=== PATIENT | male | born 1970 | race Caucasian/White ===

== ENCOUNTER 2019-05-17 00:10 | Inpatient (IN) | payer OTHER ==
[2019-05-17 03:16] VITALS: BMI 27.5
--- NOTE | 2019-05-17 04:48 | PN ---
BHS COWS - Scale Resting Pulse: 1= [place] 81-100 Sweatin=Flushed/Facial Moisture Restless Observation: 0= Sits Still Pupil Size: 0= Normal to Room Light Bone or Joint Aches: 4=Acute Joint/Muscle Pain Runny Nose/ Eye Tearin= Runny Nose/Eyes GI Upset > 30mins: 1= Stomach Cramp Tremor Observation of Outstretched Hands: 4= Gross Tremor/Twitching Yawning Observation: 1= 1-2x During Session Anxiety or Irritability: 2=Irritable/Anxious Goose Flesh Skin: 0=Smooth Skin COWS Score: 17 BHS Progress Note (SOAP) Subjective: Heroin dependence in withdrawal Cocaine dependence Nicotine dependence Cannabis dependence Objective: 05/17/19 04:48 Sweating, Shakiness Anxiety Tremors Vital Signs Temperature 96.5 F L 05/17/19 03:14 Pulse Rate 88 05/17/19 03:14 Respiratory Rate 18 05/17/19 03:14 Blood Pressure 124/79 05/17/19 03:14 O2 Sat by Pulse Oximetry (%) Assessment: 05/17/19 04:49 Heroin withdrawal symptoms Plan: Admit to detox Methadone regimen See admission orders H and 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
[2019-05-17] MEDS ORDERED: IBUPROFEN 400 MG TABLET (FP) PO PRN (04:56)
[2019-05-17] MEDS ORDERED: ACETAMINOPHEN 325 MG TABLET (FP) PO PRN ×2 (04:56)
[2019-05-17] MEDS ORDERED: MELATONIN 5 MG TABLETS PO PRN (04:56)
[2019-05-17] MEDS ORDERED: MAG HYDROX/AL HYDROX/SIMETH 30 ML UNIT-DOSE CUP PO PRN (04:56)
[2019-05-17] MEDS ORDERED: NICOTINE POLACRILEX 2 MG GUM BUC PRN (04:56)
[2019-05-17] MEDS ORDERED: BISMUTH SUBSALICYLATE 524 MG/30 ML UD PO PRN (04:56)
[2019-05-17] MEDS ORDERED: MAGNESIUM CITRATE 300 ML BOTTLE PO PRN (04:56)
[2019-05-17] MEDS ORDERED: MENTHOL/PHENOL 1 EACH UD MM PRN (04:56)
[2019-05-17] MEDS ORDERED: cloNIDine HCL 0.1 MG TABLET PO PRN (04:56)
[2019-05-17] MEDS ORDERED: METHADONE HCL 10 MG TABLET (FOR DETOX USE ONLY) PO ONE (04:56)
--- NOTE | 2019-05-17 10:13 | CONSULT ---
[facility] Psychiatric Consult - Data Date of interview: 05/17/19 Admission source: Self-referred Identifying data: Mr Langley is a 49 years old single male, unemployed receiving SSI, homeless seeking detox treatment for opioid cocaine and cannabis Substance Abuse History: Reports history of heroin, cocaine and marijuana use. Refer to addiction counselor's summary for further information Medical History: Significant for dyslidemia, hypertension, hypothyroidism, low back pain. Smokes 10 cigaretttes daily Psychiatric History: Reports being diagnosed with ADHD a a child and Biploar depression in 2007. Denies previous psychiatric hospitalization or suicidal attempt. Reports that he was seeing a psychiatrist in [place] and his last visit was in March 2019. He is currently prescribed Strattera 80 mg/day, Wellbutrin 150 mg/day, Atarax 50 mg/tid and Seroquel 200 mg/hs. Claims that he last took medications 2 days ago. At present, denies experiencing psychotic, manic or depressive symptoms, S/H ideations. However, reports feeling anxious and sleeping poorly Physical/Sexual Abuse/Trauma History: Denies history of emotional, physical or sexual abuse as well as DV relationship Additional Comment: Reports history of 3 previous misdemeanor arrests Mental Status Exam - Mental Status Exam Alert and Oriented to: Time, Place, Person Cognitive Function: Fair Patient Appearance: Disheveled Mood: Anxious Affect: Constricted Patient Behavior: Cooperative Speech Pattern: Clear Voice Loudness: Normal Thought Process: Intact, Goal Oriented Thought Disorder: Not Present Hallucinations: Denies Suicidal Ideation: Denies Homicidal Ideation: Denies Insight/Judgement: Poor Sleep: Poorly Appetite: Good Muscle strength/Tone: Normal Gait/Station: Normal Psychiatric Findings - Problem List ([place] 1, 2,3) (1) ADHD (attention deficit hyperactivity disorder) Current Visit: Yes Status: Chronic (2) Bipolar II disorder Current Visit: Yes Status: Chronic (3) Substance-induced anxiety disorder Current Visit: Yes Status: Acute (4) Substance-induced sleep disorder Current Visit: Yes Status: Acute (5) Uncomplicated opioid dependence Current Visit: Yes Status: Acute (6) Cocaine dependence Current Visit: Yes Status: Acute (7) Cannabis dependence Current Visit: Yes Status: Acute (8) Nicotine dependence Current Visit: Yes Status: Chronic (9) Dyslipidemia Current Visit: Yes Status: Chronic (10) Hypothyroidism Current Visit: Yes Status: Chronic - Initial Treatment Plan Initial Treatment Plan: 1) Resume Strattera 80 mg po daily, Wellbutrin 150 mg po daily and Seroquel 200 mg po HS. 2) Continue inpatient detoxification
[2019-05-17] MEDS: PRENATAL VITAMINS W/ FOLIC ACID TABLET (FP) PO SCH (10:51)
[2019-05-17] MEDS: NICOTINE 14 MG/24 HOURS TOPICAL PATCH TD SCH (10:53)
[2019-05-17] MEDS: hydrOXYzine PAMOATE 25 MG CAPSULE (FP) PO PRN ×2 (10:55→19:19)
[2019-05-17] MEDS: ATOMOXETINE HCL 40 MG CAPSULE PO SCH (11:29)
[2019-05-17] MEDS: buPROPion HCL 75 MG TABLET PO SCH (11:31)
[2019-05-17] MEDS ORDERED: FLU VACCINE QUAD 60 MCG/0.5 ML (MDV 19-20) IM ONE (12:00)
--- NOTE | 2019-05-17 13:19 | HP ---
COWS - Scale Resting Pulse: 0= [place] 80 or Below Sweatin=Flushed/Facial Moisture Restless Observation: 1= Difficult to Sit Still Pupil Size: 0= Normal to Room Light Bone or Joint Aches: 2= Severe Diffuse Aches Runny Nose/ Eye Tearin= Runny Nose/Eyes GI Upset > 30mins: 1= Stomach Cramp Tremor Observation: 2= Slight Tremor Visible Yawning Observation: 2= >3x During Session Anxiety or Irritability: 2=Irritable/Anxious Goose Flesh Skin: 3=Piloerection COWS Score: 17 CIWA Score - Admission Criteria OASAS Guidelines: Admission for Medically Managed Detox: Requires at least one of the followin. CIWA greater than 12 2. Seizures within the past 24 hours 3. Delirium tremens within the past 24 hours 4. Hallucinations within the past 24 hours 5. Acute intervention needed for co occurring medical disorder 6. Acute intervention needed for co occurring psychiatric disorder 7. Severe withdrawal that cannot be handled at a lower level of care (continued vomiting, continued diarrhea, abnormal vital signs) requiring intravenous medication and/or fluids 8. Admitting History and Physical - Admission Chief Complaint: I need detox History of Present Illness: Pt is a 49 yr old male with a history of opioid dependence seeking detox for treatment. History Source: Patient Limitations to Obtaining History: No Limitations - Past Medical History Gastrointestinal: Yes: GERD Psych: Yes: Anxiety, Bipolar Musculoskeletal: Yes: Chronic low back pain ENT: Yes: Allergic Rhinitis - Past Surgical History Past Surgical History: Yes: None - Smoking History Smoking history: Current every day smoker Have you smoked in the past 12 months: Yes Aproximately how many cigarettes per day: 10 - Alcohol/Substance Use History of Substance Use: reports: Cocaine, Heroin Date of Last Use: 05/16/19 - Social History Usual Living Arrangement: Yes: With Significant Other Do you think of yourself as: Straight/Heterosexual History of Recent Travel: No Admission ROS [facility] Chief Complaint: I am here for detox. Allergies/Adverse Reactions: Allergies Allergy/AdvReac Type Severity Reaction Status Date / Time No Known Allergies Allergy Unverified 05/17/19 09:33 History of Present Illness: Pt is a 50yrold male with a history of alcohol dependence seeking detox. Exam Limitations: No Limitations - Ebola screening Have you traveled outside of the country in the last 21 days: No (N) Have you had contact with anyone from an Ebola affected area: No Have you been sick,other than usual withdrawal symptoms: No Do you have a fever: No - Review of Systems Constitutional: Diaphoresis, Loss of Appetite, Night Sweats, Unintentional Wgt. Loss EENT: reports: Tearing, Nose Congestion Cardiac: reports: No Symptoms Reported GI: reports: Poor Appetite, Poor Fluid Intake : reports: No Symptoms Reported Musculoskeletal: reports: No Symptoms Reported Integumentary: reports: Flushing, Sweating Neuro: reports: Headache, Tingling, Tremors Endocrine: reports: Excessive Sweating, Flushing, Intolerance to Cold, Intolerance to Heat Hematology: reports: No Symptoms Reported Psychiatric: reports: Judgement Intact, Mood/Affect Appropiate, Orientated x3, Agitated, Anxious Other Systems: Reviewed and Negative Patient History - Patient Medical History Hx Anemia: No Hx Asthma: No Hx Chronic Obstructive Pulmonary Disease (COPD): No Hx Cancer: No Hx Cardiac Disorders: No Hx Congestive Heart Failure: No Hx Hypertension: No Hx Hypercholesterolemia: No Hx Pacemaker: No HX Cerebrovascular Accident: No Hx Seizures: No Hx Dementia: No Hx Diabetes: No Hx Gastrointestinal Disorders: No Hx Liver Disease: No Hx Genitourinary Disorders: No Hx Sexually Transmitted Disorders: Yes ( syphilis treated) Hx Renal Disease (ESRD): No Hx Thyroid Disease: No Hx Human Immunodeficiency Virus (HIV): No Hx Hepatitis C: No Hx Depression: Yes Hx Suicide Attempt: No (pt denies) Hx Bipolar Disorder: Yes Hx Schizophrenia: No - Patient Surgical History Past Surgical History: No Hx Neurologic Surgery: No Hx Cataract Extraction: No Hx Cardiac Surgery: No Hx Lung Surgery: No Hx Breast Surgery: No Hx Breast Biopsy: No Hx Abdominal Surgery: No Hx Appendectomy: No Hx Cholecystectomy: No Hx Genitourinary Surgery: No Hx Section: No Hx Orthopedic Surgery: No Anesthesia Reaction: No - PPD History Previous Implant?: Yes Documented Results: Negative w/o proof Implanted On Prior [facility] Admission?: No Date: 05/19/19 PPD to be Administered?: No - Reproductive History Patient is a Female of Child Bearing Age (11 -55 yrs old): No - Smoking Cessation Smoking history: Current every day smoker Have you smoked in the past 12 months: Yes Aproximately how many cigarettes per day: 10 Hx Chewing Tobacco Use: No Initiated information on smoking cessation: Yes 'Breaking Loose' booklet given: 05/17/19 - Substance & Tx. History Hx Alcohol Use: No Hx Substance Use: Yes Substance Use Type: Heroin Hx Substance Use Treatment: No - Substances abused Heroin Substance route: Inhalation Frequency: Daily Amount used: 1 bundle Age of first use: 19 Date of last use: 05/16/19 Admission Physical Exam BHS - Vital Signs Vital Signs: Vital Signs - 24 hr 05/17/19 05/17/19 05/17/19 03:14 06:03 09:15 Temperature 96.5 F L 97.7 F 98.4 F Pulse Rate 88 80 86 Respiratory 18 18 18 Rate Blood Pressure 124/79 134/90 112/61 - Physical General Appearance: Yes: Appropriately Dressed, Moderate Distress, Tremorous, Irritable, Sweating, Anxious HEENTM: Yes: Normal Voice, Nasal Congestion, Rhinorrhea Respiratory: Yes: Lungs Clear, Normal Breath Sounds, No Respiratory Distress Neck: Yes: No masses,lesions,Nodules Breast: Yes: Within Normal Limits Cardiology: Yes: Regular Rhythm, Regular Rate, S1, S2 Abdominal: Yes: Normal Bowel Sounds, Non Tender, Flat, Soft Genitourinary: Yes: Within Normal Limits Back: Yes: Normal Inspection Musculoskeletal: Yes: Back pain Extremities: Yes: Normal Capillary Refill, Tremors Neurological: Yes: Fully Oriented, Alert, Normal Response Integumentary: Yes: Normal Color Lymphatic: Yes: Within Normal Limits - Diagnostic (1) Cannabis dependence Current Visit: Yes Status: Chronic (2) Cocaine dependence Current Visit: Yes Status: Chronic Qualifiers: Substance use status: uncomplicated Qualified Code(s): F14.20 - Cocaine dependence, uncomplicated (3) Substance-induced anxiety disorder Current Visit: Yes Status: Acute (4) Substance-induced sleep disorder Current Visit: Yes Status: Acute (5) Uncomplicated opioid dependence Current Visit: Yes Status: Chronic (6) ADHD (attention deficit hyperactivity disorder) Current Visit: Yes Status: Chronic (7) Bipolar II disorder Current Visit: Yes Status: Chronic (8) Hypothyroidism Current Visit: Yes Status: Chronic Qualifiers: Hypothyroidism type: acquired Qualified Code(s): E03.9 - Hypothyroidism, unspecified (9) Nicotine dependence Current Visit: Yes Status: Chronic Qualifiers: Nicotine product type: cigarettes Substance use status: uncomplicated Qualified Code(s): F17.210 - Nicotine dependence, cigarettes, uncomplicated Cleared for Admission BHS - Detox or Rehab [facility] Level of Care: Medically Managed Detox Regimen/Protocol: Methadone Breathalyzer - Breathalyzer Breathalyzer: 0 Urine Drug Screen - Test Device Lot number: [id number] Expiration date: 01/07/21 - Control Is test valid?: Yes - Results Drug screen NEGATIVE: Yes Urine drug screen results: THC-Marijuana, JENNIFER-Cocaine, FEN-Fentanyl, MTD- Methadone Inpatient Rehab Admission - Rehab Decision to Admit Inpatient rehab admission?: No
[2019-05-17 16:32] LABS: HEMATOCRIT 40.9 % (35.4-49); MCH 28.2 pg (25.7-33.7); MCHC 34.1 g/dl (32.0-35.9); MEAN CELL VOLUME 82.6 fl (80-96); MEAN PLT VOLUME 8.3 fl (7.5-11.1); PLATELET COUNT 304 K/MM3 (134-434); RBC 4.95 M/mm3 (4.00-5.60); RDW 13.4 % (11.9-15.9); WHITE BLOOD COUNT 9.8 K/mm3 (4.0-10.0)
[2019-05-17 16:44] LABS: ALBUMIN 3.5 g/dl (3.4-5.0); BILIRUBIN,TOTAL 0.4 mg/dL (0.2-1); BLOOD UREA NITROGEN 15.1 mg/dL (7-18); CALCIUM 8.9 mg/dL (8.5-10.1); POTASSIUM 4.2 mmol/L (3.5-5.1); TOT PROT 6.4 g/dl (6.4-8.2)
--- NOTE | 2019-05-17 18:58 | HOSP ---
Subjective - Review of Symptoms Subjective: Called that patient has crusting with some blood on the bottom of his R foot. Patient reports that he was walking for several days outside without socks. On exam, patient's foot had several crusted lesions on plantar surface with dried blood noted. Not actively bleeding. Will order Eucerin lotion to be applied to the foot daily with wrap. Physical Examination Vital Signs: Vital Signs Temperature 97.2 F L 05/17/19 16:58 Pulse Rate 84 05/17/19 16:58 Respiratory Rate 18 05/17/19 16:58 Blood Pressure 138/75 05/17/19 16:58 O2 Sat by Pulse Oximetry (%) Labs: CBC, BMP 05/17/19 13:15 05/17/19 13:15 Visit type - Emergency Visit Emergency Visit: No - New Patient This patient is new to me today: No - Critical Care Critical Care patient: No
[2019-05-17] MEDS: METHOCARBAMOL 500 MG TABLET PO PRN (19:19)
[2019-05-17] MEDS: QUEtiapine FUMARATE 200 MG TABLET PO SCH (22:23)
[2019-05-17] MEDS: ATORVASTATIN CA 10 MG TABLET (FP) PO SCH (22:23)
[2019-05-17] MEDS: THIAMINE HCL 100 MG TABLET (FP) PO SCH (22:23)
[2019-05-18] MEDS: LEVOTHYROXINE NA 25 MCG TABLET (FP) PO SCH (08:01)
[2019-05-18] MEDS ORDERED: METHADONE HCL 5 MG TABLET (FOR DETOX USE ONLY) ONE (09:37)
[2019-05-18] MEDS ORDERED: METHADONE HCL 10 MG TABLET (FOR DETOX USE ONLY) ONE (09:37)
[2019-05-18] MEDS ORDERED: METHADONE (DETOX) 20 MG, METHADONE (DETOX) 5 MG PO ONE (10:00)
[2019-05-18] MEDS: PRENATAL VITAMINS W/ FOLIC ACID TABLET (FP) PO SCH (10:10)
[2019-05-18] MEDS: ATOMOXETINE HCL 40 MG CAPSULE PO SCH (10:10)
[2019-05-18] MEDS: MINERAL OIL/PETROLAT/WATER TOPICAL CREAM 113 GM JAR TP SCH (10:11)
[2019-05-18] MEDS: NICOTINE 14 MG/24 HOURS TOPICAL PATCH TD SCH (10:11)
[2019-05-18] MEDS: hydrOXYzine PAMOATE 25 MG CAPSULE (FP) PO PRN ×2 (10:14→18:15)
--- NOTE | 2019-05-18 10:57 | EKG ---
Test Reason : Blood Pressure : / mmHG Vent. Rate : 080 BPM Atrial Rate : 080 BPM P-R Int : 144 ms QRS Dur : 102 ms QT Int : 402 ms P-R-T Axes : 063 072 044 degrees QTc Int : 463 ms NORMAL SINUS RHYTHM NORMAL ECG NO PREVIOUS ECGS AVAILABLE Confirmed by AMINTA SANCHEZ, JAMES ([id number]) on 05/18/2019 10:57:23 AM Referred By: Errol Mercado Confirmed By:JAMES LEMOS MD
[2019-05-18] MEDS: buPROPion HCL 75 MG TABLET PO SCH (12:37)
--- NOTE | 2019-05-18 13:03 | PN ---
BHS COWS - Scale Resting Pulse: 1= [place] 81-100 Sweatin=Flushed/Facial Moisture Restless Observation: 1= Difficult to Sit Still Pupil Size: 0= Normal to Room Light Bone or Joint Aches: 2= Severe Diffuse Aches Runny Nose/ Eye Tearin= Nasal Congestion GI Upset > 30mins: 0= None Tremor Observation of Outstretched Hands: 2= Slight Tremor Visible Yawning Observation: 0= None Anxiety or Irritability: 2=Irritable/Anxious Goose Flesh Skin: 0=Smooth Skin COWS Score: 11 BHS Progress Note (SOAP) Subjective: agitation sweats anxiety irritable interrupted sleep Objective: 05/18/19 12:56 Vital Signs Temperature 98.9 F 05/18/19 10:20 Pulse Rate 97 H 05/18/19 10:20 Respiratory Rate 18 05/18/19 10:20 Blood Pressure 107/58 L 05/18/19 10:20 O2 Sat by Pulse Oximetry (%) Laboratory Tests 05/17/19 05/17/19 05/17/19 13:15 13:15 13:15 WBC 9.8 RBC 4.95 Hgb 14.0 Hct 40.9 MCV 82.6 MCH 28.2 MCHC 34.1 RDW 13.4 Plt Count 304 MPV 8.3 Sodium 138 Potassium 4.2 Chloride 103 Carbon Dioxide 31 Anion Gap 4 L BUN 15.1 Creatinine 1.0 Est GFR (CKD-EPI)AfAm 103.42 Est GFR (CKD-EPI)NonAf 89.23 Random Glucose 134 H Calcium 8.9 Total Bilirubin 0.4 AST 20 ALT 36 Alkaline Phosphatase 93 Total Protein 6.4 Albumin 3.5 RPR Titer HIV 1&2 Antibody Screen Negative HIV P24 Antigen Negative 05/17/19 13:15 WBC RBC Hgb Hct MCV MCH MCHC RDW Plt Count MPV Sodium Potassium Chloride Carbon Dioxide Anion Gap BUN Creatinine Est GFR (CKD-EPI)AfAm Est GFR (CKD-EPI)NonAf Random Glucose Calcium Total Bilirubin AST ALT Alkaline Phosphatase Total Protein Albumin RPR Titer Nonreactive HIV 1&2 Antibody Screen HIV P24 Antigen labs noted aaox3 ambulating no acute distress Assessment: 05/18/19 13:03 withdrawal Plan: continue detox increase fluids
--- NOTE | 2019-05-18 13:37 | PN ---
[facility] Progress Note Note: pt was seen at [facility] on 05/13/19 for N/V. pt failed to tell admitting doctor here at [facility] that he need to continue taking cipro and flagly prescribed medication. this was confirmed pt brought his own medication and d/c papers were viewed and it confirmed the above. order for cipro and flagly will be placed.
[2019-05-18] MEDS ORDERED: CIPROFLOXACIN 500 MG TABLET (RESTRICTED TO ID) PO SCH (13:45)
[2019-05-18] MEDS: metroNIDAZOLE 250 MG TABLET PO SCH ×2 (15:11→22:10)
[2019-05-18] MEDS: CIPROFLOXACIN 500 MG TABLET (RESTRICTED TO ID) PO SCH ×2 (15:11→22:10)
[2019-05-18] MEDS: QUEtiapine FUMARATE 200 MG TABLET PO SCH (22:09)
[2019-05-18] MEDS: THIAMINE HCL 100 MG TABLET (FP) PO SCH (22:09)
[2019-05-18] MEDS: ATORVASTATIN CA 10 MG TABLET (FP) PO SCH (22:09)
[2019-05-18] MEDS: TOLNAFTATE 1% CREAM 15 GM TUBE TP SCH (22:53)
[2019-05-18] MEDS: BACITRACIN 0.9 GM PACKET TP SCH (22:53)
[2019-05-19] MEDS: metroNIDAZOLE 250 MG TABLET PO SCH ×3 (06:23→22:24)
[2019-05-19] MEDS: LEVOTHYROXINE NA 25 MCG TABLET (FP) PO SCH (06:24)
[2019-05-19] MEDS: hydrOXYzine PAMOATE 25 MG CAPSULE (FP) PO PRN ×3 (06:27→22:27)
[2019-05-19] MEDS: NICOTINE 14 MG/24 HOURS TOPICAL PATCH TD SCH (09:58)
[2019-05-19] MEDS: ATOMOXETINE HCL 40 MG CAPSULE PO SCH (09:58)
[2019-05-19] MEDS: buPROPion HCL 75 MG TABLET PO SCH (09:58)
[2019-05-19] MEDS: PRENATAL VITAMINS W/ FOLIC ACID TABLET (FP) PO SCH (09:58)
[2019-05-19] MEDS: CIPROFLOXACIN 500 MG TABLET (RESTRICTED TO ID) PO SCH ×2 (09:59→22:24)
[2019-05-19] MEDS ORDERED: METHADONE HCL 10 MG TABLET (FOR DETOX USE ONLY) PO ONE (10:00)
[2019-05-19] MEDS: BACITRACIN 0.9 GM PACKET TP SCH ×2 (10:36→22:24)
[2019-05-19] MEDS: TOLNAFTATE 1% CREAM 15 GM TUBE TP SCH ×2 (10:36→22:24)
[2019-05-19] MEDS: MINERAL OIL/PETROLAT/WATER TOPICAL CREAM 113 GM JAR TP SCH (10:36)
[2019-05-19] MEDS: MAGNESIUM HYDROX 2400MG/30ML ORAL SUSPENSION 30 ML CUP PO PRN (11:37)
--- NOTE | 2019-05-19 12:14 | PN ---
BHS COWS - Scale Resting Pulse: 1= [place] 81-100 Sweatin= Chills/Flushing Restless Observation: 1= Difficult to Sit Still Pupil Size: 0= Normal to Room Light Bone or Joint Aches: 2= Severe Diffuse Aches Runny Nose/ Eye Tearin= Nasal Congestion GI Upset > 30mins: 0= None Tremor Observation of Outstretched Hands: 1= Tremor [place], Not Seen Yawning Observation: 0= None Anxiety or Irritability: 2=Irritable/Anxious Goose Flesh Skin: 0=Smooth Skin COWS Score: 9 BHS Progress Note (SOAP) Subjective: agitation sweats anxiety Objective: 05/19/19 12:13 Vital Signs Temperature 97.5 F L 05/19/19 06:25 Pulse Rate 81 05/19/19 06:25 Respiratory Rate 18 05/19/19 06:25 Blood Pressure 134/63 05/19/19 06:25 O2 Sat by Pulse Oximetry (%) Laboratory Tests 05/17/19 05/17/19 05/17/19 13:15 13:15 13:15 WBC 9.8 RBC 4.95 Hgb 14.0 Hct 40.9 MCV 82.6 MCH 28.2 MCHC 34.1 RDW 13.4 Plt Count 304 MPV 8.3 Sodium 138 Potassium 4.2 Chloride 103 Carbon Dioxide 31 Anion Gap 4 L BUN 15.1 Creatinine 1.0 Est GFR (CKD-EPI)AfAm 103.42 Est GFR (CKD-EPI)NonAf 89.23 Random Glucose 134 H Calcium 8.9 Total Bilirubin 0.4 AST 20 ALT 36 Alkaline Phosphatase 93 Total Protein 6.4 Albumin 3.5 RPR Titer HIV 1&2 Antibody Screen Negative HIV P24 Antigen Negative 05/17/19 13:15 WBC RBC Hgb Hct MCV MCH MCHC RDW Plt Count MPV Sodium Potassium Chloride Carbon Dioxide Anion Gap BUN Creatinine Est GFR (CKD-EPI)AfAm Est GFR (CKD-EPI)NonAf Random Glucose Calcium Total Bilirubin AST ALT Alkaline Phosphatase Total Protein Albumin RPR Titer Nonreactive HIV 1&2 Antibody Screen HIV P24 Antigen labs noted aaox3 ambulating no acute distress Assessment: 05/19/19 12:13 withdrawals Plan: continue detox increase fluids
[2019-05-19] MEDS: METHOCARBAMOL 500 MG TABLET PO PRN ×2 (14:55→22:28)
[2019-05-19] MEDS: QUEtiapine FUMARATE 200 MG TABLET PO SCH (22:22)
[2019-05-19] MEDS: ATORVASTATIN CA 10 MG TABLET (FP) PO SCH (22:23)
[2019-05-19] MEDS: THIAMINE HCL 100 MG TABLET (FP) PO SCH (22:23)
[2019-05-20] MEDS: MINERAL OIL/PETROLAT/WATER TOPICAL CREAM 113 GM JAR TP SCH ×2 (01:12→10:28)
[2019-05-20] MEDS: metroNIDAZOLE 250 MG TABLET PO SCH ×3 (05:15→21:57)
[2019-05-20] MEDS: LEVOTHYROXINE NA 25 MCG TABLET (FP) PO SCH (07:57)
[2019-05-20] MEDS ORDERED: METHADONE HCL 10 MG TABLET (FOR DETOX USE ONLY) ONE (09:44)
[2019-05-20] MEDS ORDERED: METHADONE HCL 5 MG TABLET (FOR DETOX USE ONLY) ONE (09:45)
[2019-05-20] MEDS ORDERED: METHADONE (DETOX) 10 MG, METHADONE (DETOX) 5 MG PO ONE (10:00)
[2019-05-20] MEDS: PRENATAL VITAMINS W/ FOLIC ACID TABLET (FP) PO SCH (10:27)
[2019-05-20] MEDS: ATOMOXETINE HCL 40 MG CAPSULE PO SCH (10:27)
[2019-05-20] MEDS: buPROPion HCL 75 MG TABLET PO SCH (10:27)
[2019-05-20] MEDS: CIPROFLOXACIN 500 MG TABLET (RESTRICTED TO ID) PO SCH ×2 (10:28→21:57)
[2019-05-20] MEDS: TOLNAFTATE 1% CREAM 15 GM TUBE TP SCH ×2 (10:29→21:58)
[2019-05-20] MEDS: hydrOXYzine PAMOATE 25 MG CAPSULE (FP) PO PRN (10:33)
[2019-05-20] MEDS: METHOCARBAMOL 500 MG TABLET PO PRN ×2 (10:33→21:59)
[2019-05-20] MEDS: NICOTINE 21 MG/24 HOURS TOPICAL PATCH TD SCH (10:35)
[2019-05-20] MEDS: BACITRACIN 0.9 GM PACKET TP SCH ×2 (10:40→21:56)
--- NOTE | 2019-05-20 13:51 | PN ---
BHS COWS - Scale Resting Pulse: 1= [place] 81-100 Sweatin= Chills/Flushing Restless Observation: 1= Difficult to Sit Still Pupil Size: 1= Pupils >than Normal Bone or Joint Aches: 1= Mild Discomfort Runny Nose/ Eye Tearin= Nasal Congestion GI Upset > 30mins: 1= Stomach Cramp Tremor Observation of Outstretched Hands: 1= Tremor [place], Not Seen Yawning Observation: 0= None Anxiety or Irritability: 2=Irritable/Anxious Goose Flesh Skin: 0=Smooth Skin COWS Score: 10 BHS Progress Note (SOAP) Subjective: interrupted sleep, sweats, lbp, constiaption , doesnt like food . Objective: 05/20/19 13:47 Vital Signs Temperature 98.0 F 05/20/19 13:10 Pulse Rate 100 H 05/20/19 13:10 Respiratory Rate 18 05/20/19 13:10 Blood Pressure 146/75 05/20/19 13:10 O2 Sat by Pulse Oximetry (%) Laboratory Tests 05/17/19 05/17/19 05/17/19 13:15 13:15 13:15 WBC 9.8 RBC 4.95 Hgb 14.0 Hct 40.9 MCV 82.6 MCH 28.2 MCHC 34.1 RDW 13.4 Plt Count 304 MPV 8.3 Sodium 138 Potassium 4.2 Chloride 103 Carbon Dioxide 31 Anion Gap 4 L BUN 15.1 Creatinine 1.0 Est GFR (CKD-EPI)AfAm 103.42 Est GFR (CKD-EPI)NonAf 89.23 Random Glucose 134 H Calcium 8.9 Total Bilirubin 0.4 AST 20 ALT 36 Alkaline Phosphatase 93 Total Protein 6.4 Albumin 3.5 RPR Titer HIV 1&2 Antibody Screen Negative HIV P24 Antigen Negative 05/17/19 13:15 WBC RBC Hgb Hct MCV MCH MCHC RDW Plt Count MPV Sodium Potassium Chloride Carbon Dioxide Anion Gap BUN Creatinine Est GFR (CKD-EPI)AfAm Est GFR (CKD-EPI)NonAf Random Glucose Calcium Total Bilirubin AST ALT Alkaline Phosphatase Total Protein Albumin RPR Titer Nonreactive HIV 1&2 Antibody Screen HIV P24 Antigen pt aox3 irriatable about food. ambulating well Assessment: 05/20/19 13:49 withdrawal sx's elevated glucose constipation 05/20/19 13:51 05/20/19 13:59 Plan: cont. detox increase fluids citrate of magnesia daily BGM
[2019-05-20] MEDS ORDERED: MAGNESIUM CITRATE 300 ML BOTTLE PO ONE (14:02)
[2019-05-20] MEDS: MAGNESIUM HYDROX 2400MG/30ML ORAL SUSPENSION 30 ML CUP PO PRN (19:50)
[2019-05-20] MEDS: THIAMINE HCL 100 MG TABLET (FP) PO SCH (21:57)
[2019-05-20] MEDS: ATORVASTATIN CA 10 MG TABLET (FP) PO SCH (21:57)
[2019-05-20] MEDS: QUEtiapine FUMARATE 200 MG TABLET PO SCH (21:57)
[2019-05-21] MEDS: metroNIDAZOLE 250 MG TABLET PO SCH (06:04)
[2019-05-21] MEDS: LEVOTHYROXINE NA 25 MCG TABLET (FP) PO SCH (06:04)
[2019-05-21] MEDS: MAGNESIUM HYDROX 2400MG/30ML ORAL SUSPENSION 30 ML CUP PO PRN (06:05)
[2019-05-21 09:13] VITALS: BP 131/66; PULSE 87; TEMP 97.9
[2019-05-21] MEDS ORDERED: METHADONE HCL 10 MG TABLET (FOR DETOX USE ONLY) PO ONE (10:00)
[2019-05-21] MEDS: CIPROFLOXACIN 500 MG TABLET (RESTRICTED TO ID) PO SCH (10:18)
[2019-05-21] MEDS: ATOMOXETINE HCL 40 MG CAPSULE PO SCH (10:18)
[2019-05-21] MEDS: buPROPion HCL 75 MG TABLET PO SCH (10:18)
[2019-05-21] MEDS: PRENATAL VITAMINS W/ FOLIC ACID TABLET (FP) PO SCH (10:18)
[2019-05-21] MEDS: NICOTINE 21 MG/24 HOURS TOPICAL PATCH TD SCH (10:19)
[2019-05-21] MEDS: TOLNAFTATE 1% CREAM 15 GM TUBE TP SCH (10:19)
[2019-05-21] MEDS: MINERAL OIL/PETROLAT/WATER TOPICAL CREAM 113 GM JAR TP SCH (10:19)
[2019-05-21] MEDS: BACITRACIN 0.9 GM PACKET TP SCH (10:19)
--- NOTE | 2019-05-21 12:43 | PN ---
BHS Progress Note (SOAP) Subjective: feeling much better i am ready to go home Objective: 05/21/19 12:43 Vital Signs Temperature 97.9 F 05/21/19 09:12 Pulse Rate 87 05/21/19 09:12 Respiratory Rate 18 05/21/19 09:12 Blood Pressure 131/66 05/21/19 09:12 O2 Sat by Pulse Oximetry (%) aaox3 ambulating no acute distress Assessment: 05/21/19 12:43 comfortable no s/s of withdrawals Plan: d/c today
--- NOTE | 2019-05-21 12:46 | DS ---
[facility] Detox Discharge Summary Admission Date: 05/17/19 Discharge Date: 05/21/19 - History Present History: Cannabis Dependence, Cocaine Dependence, Opioid Dependence, Sedative Dependence - Physical Exam Results Vital Signs: Vital Signs Temperature 97.9 F 05/21/19 09:12 Pulse Rate 87 05/21/19 09:12 Respiratory Rate 18 05/21/19 09:12 Blood Pressure 131/66 05/21/19 09:12 O2 Sat by Pulse Oximetry (%) Pertinent Admission Physical Exam Findings: pt arrived in withdrawals Laboratory Tests 05/17/19 05/17/19 05/17/19 13:15 13:15 13:15 WBC 9.8 RBC 4.95 Hgb 14.0 Hct 40.9 MCV 82.6 MCH 28.2 MCHC 34.1 RDW 13.4 Plt Count 304 MPV 8.3 Sodium 138 Potassium 4.2 Chloride 103 Carbon Dioxide 31 Anion Gap 4 L BUN 15.1 Creatinine 1.0 Est GFR (CKD-EPI)AfAm 103.42 Est GFR (CKD-EPI)NonAf 89.23 Random Glucose 134 H Calcium 8.9 Total Bilirubin 0.4 AST 20 ALT 36 Alkaline Phosphatase 93 Total Protein 6.4 Albumin 3.5 RPR Titer HIV 1&2 Antibody Screen Negative HIV P24 Antigen Negative 05/17/19 13:15 WBC RBC Hgb Hct MCV MCH MCHC RDW Plt Count MPV Sodium Potassium Chloride Carbon Dioxide Anion Gap BUN Creatinine Est GFR (CKD-EPI)AfAm Est GFR (CKD-EPI)NonAf Random Glucose Calcium Total Bilirubin AST ALT Alkaline Phosphatase Total Protein Albumin RPR Titer Nonreactive HIV 1&2 Antibody Screen HIV P24 Antigen today pt is aaox3 ambulating no acute distress - Treatment Hospital Course: Detox Protocol Followed, Detoxed Safely, Responded well, Discharged Condition Good, Rehab Referral Accepted Patient has Accepted a Rehab Referral to: declined rehab; referral provided - Medication Discharge Medications: Ambulatory Orders Atomoxetine HCl [Strattera -] 80 mg PO DAILY 05/17/19 Atorvastatin Calcium [Lipitor] 10 mg PO HS 05/17/19 Bupropion HCl [Wellbutrin -] 150 mg PO DAILY 05/17/19 Clonidine HCl [Catapres] 0.1 mg PO BID PRN 05/17/19 Hydroxyzine HCl 50 mg PO TID PRN 05/17/19 Levothyroxine [Synthroid -] 25 mcg PO DAILY 05/17/19 Quetiapine Fumarate [Seroquel -] 200 mg PO HS 05/17/19 - Diagnosis (1) Cannabis dependence Current Visit: Yes Status: Chronic (2) Cocaine dependence Current Visit: Yes Status: Chronic Qualifiers: Substance use status: uncomplicated Qualified Code(s): F14.20 - Cocaine dependence, uncomplicated (3) Substance-induced anxiety disorder Current Visit: Yes Status: Acute (4) Substance-induced sleep disorder Current Visit: Yes Status: Acute (5) Uncomplicated opioid dependence Current Visit: Yes Status: Chronic (6) ADHD (attention deficit hyperactivity disorder) Current Visit: Yes Status: Chronic (7) Bipolar II disorder Current Visit: Yes Status: Chronic (8) Hypothyroidism Current Visit: Yes Status: Chronic Qualifiers: Hypothyroidism type: acquired Qualified Code(s): E03.9 - Hypothyroidism, unspecified (9) Nicotine dependence Current Visit: Yes Status: Chronic Qualifiers: Nicotine product type: cigarettes Substance use status: uncomplicated Qualified Code(s): F17.210 - Nicotine dependence, cigarettes, uncomplicated - AMA Did Patient Leave Against Medical Advice: No
[2019-05-22] MEDS ORDERED: METHADONE HCL 5 MG TABLET (FOR DETOX USE ONLY) PO ONE (06:00)
== END 2019-05-21 13:09 | disposition home or self-care (01) | DRG 897 ==
LOC: YASAS 00:10 → Y6N 05:09
PROVIDERS: ADMIT Allergy & Immunology; ATTEND Allergy & Immunology
PROC: HZ2ZZZZ Detoxification Services for Substance Abuse Treatment (ICD-10-PCS; principal; 2019-05-17)
DX: F11.23 Opioid dependence with withdrawal (principal); F14.20 Cocaine dependence, uncomplicated; F19.280 Other psychoactive substance dependence with psychoactive substance-induced anxiety disorder; F19.282 Other psychoactive substance dependence with psychoactive substance-induced sleep disorder; F31.81 Bipolar II disorder; F13.220 Sedative, hypnotic or anxiolytic dependence with intoxication, uncomplicated; F12.20 Cannabis dependence, uncomplicated; F17.210 Nicotine dependence, cigarettes, uncomplicated; F41.9 Anxiety disorder, unspecified; F90.9 Attention-deficit hyperactivity disorder, unspecified type; E78.5 Hyperlipidemia, unspecified; E03.9 Hypothyroidism, unspecified; R73.9 Hyperglycemia, unspecified; K59.00 Constipation, unspecified; L98.8 Other specified disorders of the skin and subcutaneous tissue; J30.9 Allergic rhinitis, unspecified
CPT/HCPCS: 36415; 80053; 85027; 86593; 87389; 93005; 93010; G0008; J0735; Q2036

== ENCOUNTER 2021-08-01 14:13 | Inpatient (IN) | payer OTHER ==
[2021-08-01] MEDS ORDERED: METHOCARBAMOL 500 MG TABLET PO PRN (17:48)
[2021-08-01] MEDS ORDERED: BISMUTH SUBSALICYLATE 524 MG/30 ML PO PRN (17:48)
[2021-08-01] MEDS ORDERED: ONDANSETRON *ODT* 4 MG TABLET SL PRN (17:48)
[2021-08-01] MEDS ORDERED: MENTHOL/PHENOL 1 EACH UD MM PRN (17:48)
[2021-08-01] MEDS ORDERED: MAG HYDROX/AL HYDROX/SIMETH 30 ML UNIT-DOSE CUP PO PRN (17:48)
[2021-08-01] MEDS ORDERED: MAGNESIUM HYDROX 2400MG/30ML ORAL SUSPENSION 30 ML CUP PO PRN (17:48)
[2021-08-01] MEDS ORDERED: diazePAM 5 MG TABLET PO PRN (17:48)
[2021-08-01] MEDS ORDERED: MAGNESIUM CITRATE 300 ML BOTTLE PO PRN (17:48)
[2021-08-01] MEDS ORDERED: ACETAMINOPHEN 325 MG TABLET (FP) PO PRN ×2 (17:48)
[2021-08-01] MEDS ORDERED: IBUPROFEN 400 MG TABLET (FP) PO PRN (17:48)
[2021-08-01] MEDS ORDERED: NICOTINE 10 MG CARTRIDGE (INHALER) IH PRN (17:48)
[2021-08-01] MEDS ORDERED: cloNIDine HCL 0.1 MG TABLET PO PRN (17:55)
[2021-08-01] MEDS ORDERED: MELATONIN 5 MG TABLETS PO SCH (22:00)
[2021-08-01] MEDS ORDERED: FAMOTIDINE 20 MG TABLET PO SCH (22:00)
[2021-08-01] MEDS ORDERED: PRAZOSIN HCL 2 MG CAPSULE PO SCH (22:00)
[2021-08-01] MEDS: THIAMINE HCL 100 MG TABLET (FP) PO SCH (22:24)
[2021-08-01] MEDS: ATORVASTATIN CA 10 MG TABLET (FP) PO SCH (22:24)
[2021-08-01] MEDS: hydrOXYzine PAMOATE 25 MG CAPSULE (FP) PO SCH (22:24)
[2021-08-01] MEDS: diazePAM 5 MG TABLET PO SCH (22:25)
[2021-08-01] MEDS ORDERED: PRAZOSIN HCL 1 MG CAPSULE PO SCH (23:18)
[2021-08-01] MEDS: PRAZOSIN HCL 1 MG CAPSULE PO SCH (23:39)
[2021-08-02] MEDS: diazePAM 5 MG TABLET PO SCH ×3 (06:14→17:20)
[2021-08-02] MEDS: hydrOXYzine PAMOATE 25 MG CAPSULE (FP) PO SCH ×4 (06:14→17:19)
[2021-08-02] MEDS: LEVOTHYROXINE NA 25 MCG TABLET (FP) PO SCH (06:31)
[2021-08-02] MEDS ORDERED: PATIENT'S OWN MEDICATION (NON-FORMULARY) (Hydroxyzine Hcl [Hydroxyzine Hcl] 50 MG Tablet) PO PRN (09:37)
[2021-08-02] MEDS ORDERED: ARIPiprazole 15 MG TABLET PO SCH (10:00)
[2021-08-02] MEDS ORDERED: PANTOPRAZOLE 40 MG TABLET PO SCH (10:00)
[2021-08-02] MEDS ORDERED: PRENATAL VITAMINS W/ FOLIC ACID TABLET (FP) PO SCH (10:00)
[2021-08-02] MEDS ORDERED: ATOMOXETINE HCL 40 MG CAPSULE PO SCH (10:00)
[2021-08-02] MEDS: BUPRENORPHINE/NALOXONE 8 MG/2 MG FILM PACKET SL SCH ×2 (10:19→17:19)
[2021-08-02 12:24] LABS: HEMATOCRIT 44.7 % (35.4-49); HEMOGLOBIN 15.1 GM/dL (11.7-16.9); MCH 28.3 pg (25.7-33.7); MCHC 33.7 g/dl (32.0-35.9); MEAN PLT VOLUME 8.2 fl (7.5-11.1); PLATELET COUNT 317 10^3/uL (134-434); RBC 5.33 M/mm3 (4.00-5.60); RDW 13.4 % (11.9-15.9); WHITE BLOOD COUNT 12.2 K/mm3 (4.0-10.0)
[2021-08-02 12:44] LABS: ALBUMIN 3.6 g/dl (3.4-5.0); BLOOD UREA NITROGEN 13.9 mg/dL (7-18); CALCIUM 9.2 mg/dL (8.5-10.1)
[2021-08-02 12:47] LABS: CREATININE 0.8 mg/dL (0.55-1.3); TOT PROT 7.1 g/dl (6.4-8.2)
[2021-08-02 12:49] LABS: BILIRUBIN,TOTAL 0.6 mg/dL (0.2-1)
[2021-08-02] MEDS: busPIRone HCL 10 MG TABLET (FP) PO SCH ×2 (16:55→22:19)
[2021-08-02] MEDS ORDERED: chlorproMAZINE HCL 25 MG TABLET PO SCH (22:00)
[2021-08-02] MEDS ORDERED: MIRTAZAPINE 15 MG TABLET (FP) PO SCH (22:00)
[2021-08-02] MEDS: ATORVASTATIN CA 10 MG TABLET (FP) PO SCH (22:19)
[2021-08-02] MEDS: THIAMINE HCL 100 MG TABLET (FP) PO SCH (22:19)
[2021-08-03] MEDS: PRAZOSIN HCL 1 MG CAPSULE PO SCH (02:02)
[2021-08-03] MEDS: diazePAM 5 MG TABLET PO SCH (02:03)
[2021-08-03] MEDS: hydrOXYzine PAMOATE 25 MG CAPSULE (FP) PO SCH ×2 (02:06→05:55)
[2021-08-03] MEDS ORDERED: diazePAM 5 MG TABLET PO SCH (06:00)
[2021-08-03 06:48] VITALS: BP 101/53; PULSE 71; TEMP 97.3
[2021-08-03] MEDS: busPIRone HCL 10 MG TABLET (FP) PO SCH (07:42)
[2021-08-03] MEDS: LEVOTHYROXINE NA 25 MCG TABLET (FP) PO SCH (08:10)
[2021-08-04] MEDS ORDERED: diazePAM 5 MG TABLET PO SCH (06:00)
[2021-08-05] MEDS ORDERED: diazePAM 5 MG TABLET PO ONE (06:00)
== END 2021-08-03 09:45 | disposition left against medical advice (07) | DRG 894 ==
LOC: YASAS 14:13 → Y6N 21:16
PROVIDERS: ADMIT Allergy & Immunology; ATTEND Allergy & Immunology
PROC: HZ2ZZZZ Detoxification Services for Substance Abuse Treatment (ICD-10-PCS; principal; 2021-08-01)
DX: F10.230 Alcohol dependence with withdrawal, uncomplicated (principal); F11.20 Opioid dependence, uncomplicated; F14.20 Cocaine dependence, uncomplicated; F19.282 Other psychoactive substance dependence with psychoactive substance-induced sleep disorder; F19.280 Other psychoactive substance dependence with psychoactive substance-induced anxiety disorder; F13.230 Sedative, hypnotic or anxiolytic dependence with withdrawal, uncomplicated; F12.20 Cannabis dependence, uncomplicated; F17.210 Nicotine dependence, cigarettes, uncomplicated; F90.9 Attention-deficit hyperactivity disorder, unspecified type; F19.24 Other psychoactive substance dependence with psychoactive substance-induced mood disorder; F43.10 Post-traumatic stress disorder, unspecified; I10 Essential (primary) hypertension; E78.5 Hyperlipidemia, unspecified; K21.9 Gastro-esophageal reflux disease without esophagitis; E03.9 Hypothyroidism, unspecified; M54.59 Other low back pain; G89.29 Other chronic pain; Z88.8 Allergy status to other drugs, medicaments and biological substances; Z62.810 Personal history of physical and sexual abuse in childhood; Z86.19 Personal history of other infectious and parasitic diseases; Z56.0 Unemployment, unspecified; Z59.00 Homelessness unspecified
CPT/HCPCS: 36415; 80053; 85027; 86593; 86780

== ENCOUNTER 2022-06-17 12:53 | Inpatient (IN) | payer OTHER ==
[2022-06-17 14:10] VITALS: BMI 30.4
[2022-06-17] MEDS ORDERED: BENZOCAINE/MENTHOL (CHLORASEPTIC ) LOZENGE MM PRN (15:24)
[2022-06-17] MEDS ORDERED: MAG HYDROX/AL HYDROX/SIMETH 30 ML UNIT-DOSE CUP PO PRN (15:24)
[2022-06-17] MEDS ORDERED: NALOXONE HCL (KLOXXADO) 8 MG SPRAY NS PRN (15:24)
[2022-06-17] MEDS ORDERED: BISMUTH SUBSALICYLATE 524 MG/30 ML PO PRN (15:24)
[2022-06-17] MEDS ORDERED: PROCHLORPERAZINE MALEATE 5 MG TABLET PO PRN (15:24)
[2022-06-17] MEDS ORDERED: MAGNESIUM HYDROX 2400MG/30ML ORAL SUSPENSION 30 ML CUP PO PRN (15:24)
[2022-06-17] MEDS ORDERED: ACETAMINOPHEN 325 MG TABLET (FP) PO PRN (15:24)
[2022-06-17] MEDS ORDERED: diazePAM 5 MG TABLET PO PRN (15:24)
[2022-06-17] MEDS ORDERED: NICOTINE 10 MG CARTRIDGE (INHALER) IH PRN (15:24)
[2022-06-17] MEDS ORDERED: MAGNESIUM CITRATE 300 ML BOTTLE PO PRN (15:24)
[2022-06-17] MEDS ORDERED: METHOCARBAMOL 500 MG TABLET PO PRN (15:24)
[2022-06-17] MEDS ORDERED: LOPERAMIDE HCL 2 MG CAPSULE PO PRN (15:24)
[2022-06-17] MEDS ORDERED: cloNIDine HCL 0.1 MG TABLET PO ONE (15:24)
[2022-06-17] MEDS ORDERED: DICYCLOMINE HCL 10 MG CAPSULE PO PRN (15:24)
[2022-06-17] MEDS ORDERED: BUPRENORPHINE HCL 150 MCG, BUPRENORPHINE HCL 75 MCG BC ONE (15:24)
[2022-06-17] MEDS ORDERED: BUPRENORPHINE HCL 150 MCG, BUPRENORPHINE HCL 75 MCG BC PRN (15:24)
[2022-06-17] MEDS ORDERED: IBUPROFEN 600 MG TABLET (FP) PO PRN (15:24)
[2022-06-17] MEDS ORDERED: ATORVASTATIN CA 10 MG TABLET (FP) PO SCH ×2 (16:00→17:48)
[2022-06-17] MEDS ORDERED: LEVOTHYROXINE NA 25 MCG TABLET (FP) PO SCH ×2 (16:00→17:47)
[2022-06-17] MEDS: NICOTINE 14 MG/24 HOURS TOPICAL PATCH TD SCH (17:36)
[2022-06-17] MEDS: PRENATAL VITAMINS W/ FOLIC ACID TABLET (FP) PO SCH (17:37)
[2022-06-17] MEDS: chlordiazePOXIDE HCL 25 MG CAPSULE PO SCH ×2 (17:38→22:06)
[2022-06-17] MEDS: ACETAMINOPHEN 325 MG TABLET (FP) PO PRN (17:39)
[2022-06-17] MEDS: BUPRENORPHINE/NALOXONE 8 MG/2 MG FILM PACKET SL SCH (17:55)
[2022-06-17] MEDS ORDERED: cloNIDine HCL 0.1 MG TABLET PO PRN (19:24)
[2022-06-17] MEDS: PRAZOSIN HCL 1 MG CAPSULE PO SCH (22:06)
[2022-06-17] MEDS: MELATONIN 5 MG TABLETS PO SCH (22:07)
[2022-06-17] MEDS: ATORVASTATIN CA 10 MG TABLET (FP) PO SCH (22:07)
[2022-06-17] MEDS: THIAMINE HCL 100 MG TABLET (FP) PO SCH (22:07)
[2022-06-17] MEDS: FAMOTIDINE 20 MG TABLET PO SCH (22:07)
[2022-06-18] MEDS ORDERED: BUPRENORPHINE HCL 150 MCG, BUPRENORPHINE HCL 75 MCG BC PRN
[2022-06-18] MEDS: chlordiazePOXIDE HCL 25 MG CAPSULE PO SCH ×4 (05:04→22:15)
[2022-06-18] MEDS: LEVOTHYROXINE NA 25 MCG TABLET (FP) PO SCH (05:05)
[2022-06-18] MEDS ORDERED: BUPRENORPHINE HCL 150 MCG, BUPRENORPHINE HCL 75 MCG BC SCH (06:00)
[2022-06-18] MEDS: ACETAMINOPHEN 325 MG TABLET (FP) PO PRN (06:32)
[2022-06-18] MEDS: FAMOTIDINE 20 MG TABLET PO SCH ×2 (10:16→22:14)
[2022-06-18] MEDS: PRENATAL VITAMINS W/ FOLIC ACID TABLET (FP) PO SCH (10:16)
[2022-06-18] MEDS: NICOTINE 14 MG/24 HOURS TOPICAL PATCH TD SCH (10:17)
[2022-06-18] MEDS: BUPRENORPHINE/NALOXONE 8 MG/2 MG FILM PACKET SL SCH (10:17)
[2022-06-18] MEDS: IBUPROFEN 400 MG TABLET (FP) PO PRN ×2 (10:18→18:11)
[2022-06-18 16:00] LABS: HEMATOCRIT 40.4 % (35.4-49); HEMOGLOBIN 13.4 GM/dL (11.7-16.9); MCH 28.2 pg (25.7-33.7); MCHC 33.3 g/dl (32.0-35.9); MEAN CELL VOLUME 84.7 fl (80-96); MEAN PLT VOLUME 8.1 fl (7.5-11.1); PLATELET COUNT 289 10^3/uL (134-434); RBC 4.77 M/mm3 (4.00-5.60); RDW 13.9 % (11.9-15.9); WHITE BLOOD COUNT 9.4 K/mm3 (4.0-10.0)
[2022-06-18 16:20] LABS: CREATININE 0.9 mg/dL (0.55-1.3)
[2022-06-18 16:21] LABS: BILIRUBIN,TOTAL 0.6 mg/dL (0.2-1)
[2022-06-18 16:22] LABS: BLOOD UREA NITROGEN 15.2 mg/dL (7-18); TOT PROT 5.8 g/dl (6.4-8.2)
[2022-06-18 16:23] LABS: ALBUMIN 3.2 g/dl (3.4-5.0); CALCIUM 8.6 mg/dL (8.5-10.1)
[2022-06-18] MEDS: MELATONIN 5 MG TABLETS PO SCH (22:13)
[2022-06-18] MEDS: THIAMINE HCL 100 MG TABLET (FP) PO SCH (22:14)
[2022-06-18] MEDS: MIRTAZAPINE 15 MG TABLET (FP) PO SCH (22:14)
[2022-06-18] MEDS: ATORVASTATIN CA 10 MG TABLET (FP) PO SCH (22:14)
[2022-06-18] MEDS: PRAZOSIN HCL 1 MG CAPSULE PO SCH (22:15)
[2022-06-19] MEDS: chlordiazePOXIDE HCL 25 MG CAPSULE PO SCH ×4 (05:52→22:05)
[2022-06-19] MEDS ORDERED: BUPRENORPHINE HCL 450 MCG FILM BC SCH (06:00)
[2022-06-19] MEDS: LEVOTHYROXINE NA 25 MCG TABLET (FP) PO SCH (06:57)
[2022-06-19] MEDS: NICOTINE 14 MG/24 HOURS TOPICAL PATCH TD SCH (10:16)
[2022-06-19] MEDS: PRENATAL VITAMINS W/ FOLIC ACID TABLET (FP) PO SCH (10:16)
[2022-06-19] MEDS: BUPRENORPHINE/NALOXONE 8 MG/2 MG FILM PACKET SL SCH (10:17)
[2022-06-19] MEDS: FAMOTIDINE 20 MG TABLET PO SCH ×2 (10:17→22:05)
[2022-06-19] MEDS: ATOMOXETINE HCL 40 MG CAPSULE PO SCH (11:22)
[2022-06-19] MEDS: ARIPiprazole 15 MG TABLET PO SCH (11:22)
[2022-06-19] MEDS ORDERED: FLU VACC QS2022-23(6MOS UP)/PF 60 MCG/0.5 ML SYRINGE IM ONE (13:00)
[2022-06-19] MEDS: ACETAMINOPHEN 325 MG TABLET (FP) PO PRN (17:35)
[2022-06-19] MEDS ORDERED: chlorproMAZINE HCL 25 MG TABLET PO SCH (22:00)
[2022-06-19] MEDS ORDERED: TAMSULOSIN HCL 0.4 MG CAP PO SCH (22:00)
[2022-06-19] MEDS: PRAZOSIN HCL 1 MG CAPSULE PO SCH (22:06)
[2022-06-19] MEDS: THIAMINE HCL 100 MG TABLET (FP) PO SCH (22:06)
[2022-06-19] MEDS: ATORVASTATIN CA 10 MG TABLET (FP) PO SCH (22:06)
[2022-06-19] MEDS: MIRTAZAPINE 15 MG TABLET (FP) PO SCH (22:06)
[2022-06-20] MEDS: chlordiazePOXIDE HCL 10 MG CAPSULE PO SCH ×2 (05:29→10:24)
[2022-06-20] MEDS: LEVOTHYROXINE NA 25 MCG TABLET (FP) PO SCH (05:29)
[2022-06-20] MEDS ORDERED: BUPRENORPHINE/NALOXONE 4 MG/1 MG FILM PACKET SL SCH (06:00)
[2022-06-20 09:26] VITALS: RESP 19
[2022-06-20] MEDS: PRENATAL VITAMINS W/ FOLIC ACID TABLET (FP) PO SCH (10:23)
[2022-06-20] MEDS: NICOTINE 14 MG/24 HOURS TOPICAL PATCH TD SCH (10:23)
[2022-06-20] MEDS: ATOMOXETINE HCL 40 MG CAPSULE PO SCH (10:24)
[2022-06-20] MEDS: FAMOTIDINE 20 MG TABLET PO SCH (10:24)
[2022-06-20] MEDS: ARIPiprazole 15 MG TABLET PO SCH (10:24)
[2022-06-20] MEDS: BUPRENORPHINE/NALOXONE 8 MG/2 MG FILM PACKET SL SCH (10:26)
[2022-06-20 13:08] VITALS: BP 130/87; PULSE 108; TEMP 97.3
[2022-06-21] MEDS ORDERED: chlordiazePOXIDE HCL 10 MG CAPSULE PO SCH (05:00)
[2022-06-21] MEDS ORDERED: BUPRENORPHINE/NALOXONE 8 MG/2 MG FILM PACKET SL ONE (06:00)
[2022-06-22] MEDS ORDERED: chlordiazePOXIDE HCL 10 MG CAPSULE PO ONE (05:00)
== END 2022-06-20 13:52 | disposition left against medical advice (07) | DRG 894 ==
LOC: YASAS 12:53 → Y3N 16:00
PROVIDERS: ADMIT Allergy & Immunology; ATTEND Surgery
PROC: HZ2ZZZZ Detoxification Services for Substance Abuse Treatment (ICD-10-PCS; principal; 2022-06-17)
DX: F10.230 Alcohol dependence with withdrawal, uncomplicated (principal); F11.20 Opioid dependence, uncomplicated; F14.20 Cocaine dependence, uncomplicated; F12.20 Cannabis dependence, uncomplicated; F17.210 Nicotine dependence, cigarettes, uncomplicated; F31.9 Bipolar disorder, unspecified; F19.24 Other psychoactive substance dependence with psychoactive substance-induced mood disorder; F90.9 Attention-deficit hyperactivity disorder, unspecified type; E78.5 Hyperlipidemia, unspecified; E03.9 Hypothyroidism, unspecified; I10 Essential (primary) hypertension; M54.50 Low back pain, unspecified; G89.29 Other chronic pain; N40.0 Benign prostatic hyperplasia without lower urinary tract symptoms; Z86.19 Personal history of other infectious and parasitic diseases; Z88.8 Allergy status to other drugs, medicaments and biological substances
CPT/HCPCS: 36415; 80053; 85027; 86593; 86780; 87811; C9803-CS; G0008; Q2036; U0003; U0005

== ENCOUNTER 2023-09-12 18:47 | Inpatient (IN) | payer OTHER ==
[2023-09-12 20:28] VITALS: BMI 33.3
[2023-09-12] MEDS ORDERED: NALOXONE HCL (KLOXXADO) 8 MG SPRAY NS PRN (21:50)
[2023-09-12] MEDS ORDERED: IBUPROFEN 400 MG TABLET (FP) PO PRN (21:50)
[2023-09-12] MEDS ORDERED: MAG HYDROX/AL HYDROX/SIMETH 30 ML UNIT-DOSE CUP PO PRN (21:50)
[2023-09-12] MEDS ORDERED: ACETAMINOPHEN 325 MG TABLET (FP) PO PRN (21:50)
[2023-09-12] MEDS ORDERED: BENZOCAINE/MENTHOL (CHLORASEPTIC ) LOZENGE MM PRN (21:50)
[2023-09-12] MEDS ORDERED: DICYCLOMINE HCL 10 MG CAPSULE PO PRN (21:50)
[2023-09-12] MEDS ORDERED: LOPERAMIDE HCL 2 MG CAPSULE PO PRN (21:50)
[2023-09-12] MEDS ORDERED: BENZONATATE 200 MG CAPSULE PO PRN (21:50)
[2023-09-12] MEDS ORDERED: MAGNESIUM HYDROX 2400MG/30ML ORAL SUSPENSION 30 ML CUP PO PRN (21:50)
[2023-09-12] MEDS ORDERED: POLYETHYLENE GLYCOL (HEALTHYLAX) 3350 17 GM PACKET PO PRN (21:50)
[2023-09-12] MEDS ORDERED: NICOTINE POLACRILEX 4 MG GUM BUC PRN (21:50)
[2023-09-12] MEDS ORDERED: NALOXONE HCL 0.4 MG/ML VIAL IM PRN (21:50)
[2023-09-12] MEDS ORDERED: guaiFENesin 600 MG TABLET.ER (FP) PO PRN (21:50)
[2023-09-12] MEDS ORDERED: BISMUTH SUBSALICYLATE 524 MG/30 ML PO PRN (21:50)
[2023-09-12] MEDS ORDERED: MELATONIN 5 MG TABLETS ONE (22:51)
[2023-09-12] MEDS: THIAMINE HCL 100 MG TABLET (FP) PO SCH (22:53)
[2023-09-12] MEDS: MELATONIN 5 MG TABLETS PO SCH (22:53)
[2023-09-13] MEDS: chlordiazePOXIDE HCL 25 MG CAPSULE PO SCH ×2 (06:48→10:17)
[2023-09-13] MEDS: chlordiazePOXIDE HCL 25 MG CAPSULE PO PRN (06:51)
[2023-09-13] MEDS: LEVOTHYROXINE NA 25 MCG TABLET (FP) PO SCH (07:49)
[2023-09-13] MEDS: NICOTINE 21 MG/24 HOURS TOPICAL PATCH TD SCH (10:15)
[2023-09-13] MEDS: PRENATAL VITAMINS W/ FOLIC ACID TABLET (FP) PO SCH (10:15)
[2023-09-13] MEDS: PNEUMOC 20-VAL CONJ-DIP CRM/PF 0.5 ML SYRINGE IM ONE (12:30)
[2023-09-13] MEDS: FENOFIBRIC ACID 135 MG CAP PO SCH (12:30)
[2023-09-13] MEDS ORDERED: ATORVASTATIN CA 20 MG TABLET (FP) ONE (21:07)
[2023-09-13] MEDS: QUEtiapine FUMARATE 200 MG TABLET PO SCH (22:16)
[2023-09-13] MEDS: ATORVASTATIN CA 40 MG TABLET (FP) PO SCH (22:16)
[2023-09-13] MEDS: TAMSULOSIN HCL 0.4 MG CAP PO SCH (22:17)
[2023-09-14] MEDS: chlordiazePOXIDE HCL 25 MG CAPSULE PO SCH (05:55)
[2023-09-14] MEDS: BACITRACIN 0.9 GM PACKET TP SCH (09:52)
[2023-09-14] MEDS: ATOMOXETINE HCL 40 MG CAPSULE PO SCH (13:26)
[2023-09-14] MEDS: QUEtiapine FUMARATE 100 MG TABLET (FP) PO SCH (22:07)
[2023-09-15] MEDS ORDERED: chlordiazePOXIDE HCL 10 MG CAPSULE PO PRN
[2023-09-15] MEDS: chlordiazePOXIDE HCL 10 MG CAPSULE PO SCH (05:49)
[2023-09-15] MEDS: IBUPROFEN 600 MG TABLET (FP) PO PRN (22:09)
[2023-09-16] MEDS: chlordiazePOXIDE HCL 10 MG CAPSULE PO SCH (05:55)
[2023-09-16] MEDS: MELATONIN 5 MG TABLETS PO ONE (22:43)
[2023-09-17] MEDS: chlordiazePOXIDE HCL 10 MG CAPSULE PO ONE (06:32)
[2023-09-17 10:56] LABS: POTASSIUM 4.1 mmol/L (3.5-5.1)
[2023-09-17 10:58] LABS: BASO % 0.7 % (0-2.0); EOS % 6.1 % (0-4.5); HEMATOCRIT 40.7 % (35.4-49); LYMPH % 48.3 % (8-40); MCH 29.5 pg (25.7-33.7); MCHC 34.4 g/dl (32.0-35.9); MEAN PLT VOLUME 8.9 fl (7.5-11.1); MONO % 6.8 % (3.8-10.2); NEUT % 38.1 % (42.8-82.8); PLATELET COUNT 194 10^3/uL (134-434); RBC 4.74 M/mm3 (4.00-5.60); RDW 12.9 % (11.9-15.9); WHITE BLOOD COUNT 8.2 K/mm3 (4.0-10.0)
[2023-09-17 10:59] LABS: ALBUMIN 3.2 g/dl (3.4-5.0); CALCIUM 9.1 mg/dL (8.5-10.1)
[2023-09-17 11:00] LABS: BLOOD UREA NITROGEN 21.8 mg/dL (7-18)
[2023-09-17 11:03] LABS: CREATININE 1.2 mg/dL (0.55-1.3)
[2023-09-17 11:04] LABS: BILIRUBIN,TOTAL 0.2 mg/dL (0.2-1); TOT PROT 6.4 g/dl (6.4-8.2)
[2023-09-17] MEDS: QUEtiapine FUMARATE 200 MG TABLET PO SCH (21:26)
[2023-09-18] MEDS ORDERED: AMMONIUM LACTATE 12% LOTION 225 GM BOTTLE TP PRN (14:57)
[2023-09-22 06:39] VITALS: BP 127/80; PULSE 94; RESP 16; TEMP 97.2
== END 2023-09-22 11:05 | disposition home or self-care (01) | DRG 895 ==
LOC: YASAS 18:47 → Y3N 21:37 → Y3E 09-17 11:15
PROVIDERS: ADMIT Allergy & Immunology; ATTEND Psychiatry & Neurology Pain Medicine
PROC: HZ42ZZZ Group Counseling for Substance Abuse Treatment, Cognitive-Behavioral (ICD-10-PCS; principal; 2023-09-12)
DX: F10.20 Alcohol dependence, uncomplicated (principal); F14.20 Cocaine dependence, uncomplicated; Z59.00 Homelessness unspecified; F17.210 Nicotine dependence, cigarettes, uncomplicated; F31.9 Bipolar disorder, unspecified; E03.9 Hypothyroidism, unspecified; K21.9 Gastro-esophageal reflux disease without esophagitis; M54.50 Low back pain, unspecified; G89.29 Other chronic pain; N40.0 Benign prostatic hyperplasia without lower urinary tract symptoms; R73.03 Prediabetes; Z88.8 Allergy status to other drugs, medicaments and biological substances
CPT/HCPCS: 0241U-QW; 36415; 80053; 82962; 85025; 86593; 86780; 87635; 87811; 90677